=== PATIENT | male | born 1975 | race Caucasian/White ===

== ENCOUNTER 2016-09-02 11:43 | Emergency (ER) | payer BC ==
[2016-09-02 12:51] VITALS: BP 107/71
--- NOTE | 2016-09-02 13:50 | UC ---
Back Pain HPI - HPI Summary HPI Summary: Acute exacebration of Chronic back pain began 2 days ago after pushing a heavy box access the floor - History of Current Complaint Chief Complaint: UCBackPain Stated Complaint: LOW BACK PAIN Time Seen by Provider: 09/02/16 13:28 Hx Obtained From: Patient Onset/Duration: Sudden Onset, Lasting Days - 2, Still Present Timing: Constant Severity Initially: Moderate Severity Currently: Moderate Pain Intensity: 7 Pain Scale Used: 0-10 Numeric Back Pain: Is Discrete @ - lower right side Character: Aching, Spasmodic, Stiffness Aggravating: Movement Alleviating: Nothing Associated Signs And Symptoms: Positive: Negative - Allergies/Home Medications Allergies/Adverse Reactions: Allergies Allergy/AdvReac Type Severity Reaction Status Date / Time No Known Allergies Allergy Verified 09/02/16 12:47 PMH/Surg Hx/FS Hx/Imm Hx Previously Healthy: No Endocrine History Of: Denies: Diabetes Cardiovascular History Of: Denies: Hypertension, Pacemaker/ICD Respiratory History Of: Reports: Asthma GI/ History Of: Denies: Renal Disease Psychological History Of: Reports: Depression - Surgical History Surgical History: Yes Surgery Procedure, Year, and Place: Hiatal Herniorrhapy, 2009 - Family History Known Family History: Positive: Unknown - Social History Occupation: Employed Full-time - [employer] Lives: With Family Alcohol Use: Rare Substance Use Type: None Smoking Status (MU): Never Smoked Tobacco Type: Smokeless Tobacco Amount Used/How Often: 1 can per day Length of Time of Smoking/Using Tobacco: 22 Years Have You Smoked in the Last Year: Yes Cessation Counseling: Counseled 3+Min - 10 Min - Immunization History Most Recent Influenza Vaccination: Not the 2014/2015 Season Most Recent Tetanus Shot: 2013 Review of Systems Constitutional: Negative Skin: Negative Eyes: Negative ENT: Negative Respiratory: Negative Cardiovascular: Negative Gastrointestinal: Negative Genitourinary: Negative Motor: Negative Neurovascular: Negative Musculoskeletal: Myalgia - right lower back Neurological: Negative Psychological: Negative All Other Systems Reviewed And Are Negative: Yes Physical Exam Triage Information Reviewed: Yes Appearance: Well-Appearing, No Pain Distress, Well-Nourished Vital Signs: Initial Vital Signs Temp 98.3 F 09/02/16 12:40 Pulse 54 09/02/16 12:40 Resp 12 09/02/16 12:40 BP 107/71 09/02/16 12:40 Pulse Ox 100 05/22/17 12:40 Vital Signs Reviewed: Yes Eye Exam: Normal Eyes: Positive: Conjunctiva Clear ENT Exam: Normal ENT: Positive: Normal ENT inspection, Hearing grossly normal. Negative: Nasal congestion, Nasal drainage, Tonsillar swelling, Tonsillar exudate, Trismus, Muffled/hoarse voice Dental Exam: Normal Neck exam: Normal Neck: Positive: Supple, Nontender Respiratory Exam: Normal Respiratory: Positive: Chest non-tender, Lungs clear, Normal breath sounds, No respiratory distress, No accessory muscle use Cardiovascular Exam: Normal Cardiovascular: Positive: RRR, No Murmur, Pulses Normal, Brisk Capillary Refill Abdominal Exam: Normal Abdomen Description: Negative: CVA Tenderness (R), CVA Tenderness (L) Musculoskeletal Exam: Normal Musculoskeletal: Positive: Strength Intact, No Edema, ROM Limited @ - low back Neurological Exam: Normal Neurological: Positive: Alert, Muscle Tone Normal Psychological Exam: Normal Skin Exam: Normal Back Pain Course/Dx - Course Course Of Treatment: continue current treatment rx add flexeril core strengthing and low back exercise follow with PCP September 13 as planned - Differential Dx/Diagnosis Differential Diagnosis/HQI/PQRI: Arthritis, Septic Arthritis, Strain, Sprain Provider Diagnoses: Acute on Chonic low back pain Discharge - Discharge Plan Condition: Stable Disposition: HOME Prescriptions: Cyclobenzaprine TAB* [Flexeril 10 MG TAB*] 10 mg PO TID PRN #15 tab PRN Reason: miscle spasm Patient Education Materials: Muscle Spasm (ED), Low Back Strain (ED), Chronic Back Pain (ED), Core Strengthening Exercises (GEN), Acute Low Back Pain (ED), How to Quit Using Smokeless Tobacco (ED) Referrals: Deon Pimentel MD [Primary Care Provider] - 09/13/16
== END 2016-09-02 13:50 | disposition home or self-care (01) ==
LOC: UCCORT 11:43
DX: M54.5 Low back pain (principal); G89.29 Other chronic pain
CPT/HCPCS: 99212; G0463

== ENCOUNTER 2016-11-15 15:49 | Emergency (ER) | payer BC ==
[2016-11-15 16:10] VITALS: BP 114/85
--- NOTE | 2016-11-15 16:28 | UC ---
Back Pain HPI - HPI Summary HPI Summary: Pt presents through amb triage. Pt states has h/o back injury. Pt was on disability x 10 weeks. Pt states this week was first week back to work, [employer]. Pt states he is scheduled for surgery in [place] in March. Pt states occasionall has right sided sciatica, no leg weakness. Today he missed a step, landed hard on right leg and exacerbated his chronic pain. no fall. no new paresthesia. no ext weakness. no change in bowel/bladder. Pt states occurred at 1430. Pt here because needs a note that was unable to complete work day today - pt scheduled until 1630. Pt has not taken any medications. Pt has not applied heat or ice. Pt states he is going home to take meds which include ibuprofen / PErcoet/ flexeril. Pt followed by family medicine in [place] Pt not scheduled to work Sat or Sun. States he thinks he will be "fine" by Friday - History of Current Complaint Chief Complaint: UCBackPain Stated Complaint: BACK PAIN Time Seen by Provider: 11/15/16 16:22 Hx Obtained From: Patient, Medical Records - istop consulted Timing: Constant Severity Initially: Mild Severity Currently: Mild Pain Intensity: 4 Pain Scale Used: 0-10 Numeric Back Pain: Is Discrete @ - right mid/low back Aggravating: Movement Alleviating: Rest, Position Associated Signs And Symptoms: Positive: Negative. Negative: Swelling, Redness , Bruising - Allergies/Home Medications Allergies/Adverse Reactions: Allergies Allergy/AdvReac Type Severity Reaction Status Date / Time No Known Allergies Allergy Verified 11/15/16 15:58 PMH/Surg Hx/FS Hx/Imm Hx Previously Healthy: Yes - Surgical History Surgical History: Yes Surgery Procedure, Year, and Place: HIATAL HERNIA REPAIR, 2009 - Family History Known Family History: Positive: Unknown - Social History Occupation: Employed Full-time Alcohol Use: None Substance Use Type: None Smoking Status (MU): Never Smoked Tobacco Type: Smokeless Tobacco Amount Used/How Often: 1 can per day Length of Time of Smoking/Using Tobacco: 22 Years Have You Smoked in the Last Year: Yes - Immunization History Most Recent Influenza Vaccination: Not the 2015/2015 Season Most Recent Tetanus Shot: 2013 Review of Systems Constitutional: Negative Skin: Negative Eyes: Negative ENT: Negative Respiratory: Negative Cardiovascular: Negative Gastrointestinal: Negative Genitourinary: Negative Motor: Other - mid/low back pain Neurovascular: Negative Musculoskeletal: Negative, Other: - mid/low back pain Neurological: Negative Psychological: Negative All Other Systems Reviewed And Are Negative: Yes Physical Exam Triage Information Reviewed: Yes Appearance: Well-Appearing, No Pain Distress - no discomfort. Pt easily changes position - walking, sitting to standing, climbing onto exam table, Well- Nourished Vital Signs: Initial Vital Signs Temp 98.0 F 11/15/16 15:54 Pulse 84 11/15/16 15:54 Resp 16 11/15/16 15:54 BP 114/85 11/15/16 15:54 Pulse Ox 98 11/15/16 15:54 Eye Exam: Normal Eyes: Positive: Conjunctiva Clear ENT Exam: Normal Dental Exam: Normal Neck exam: Normal Neck: Positive: Supple, Nontender, No Lymphadenopathy Respiratory Exam: Normal Respiratory: Positive: Chest non-tender, Lungs clear, Normal breath sounds, No respiratory distress, No accessory muscle use Cardiovascular Exam: Normal Cardiovascular: Positive: RRR, No Murmur Abdominal Exam: Normal Abdomen Description: Positive: Nontender, No Organomegaly, Soft Bowel Sounds: Positive: Present Musculoskeletal: Positive: Other: - no spinous process pain c/t/l/s mild paraspinal distal thoracic, lumbar Full AROM upper ext + SLE b/l lower with increased back pain + flex/ext knee, ankle without difficulty Neurological Exam: Normal Neurological: Positive: Alert, Other: - b/l equal sensation throughotu 2+ patellar, achilles - no clonus Psychological Exam: Normal Skin Exam: Normal Back Pain Course/Dx - Course Course Of Treatment: Pt with chronic back pain and exacerbated with misstep at work today. Pt requesting a note for remainder of work today. Pt has medications at home. Pt declined Motrin in urgent care. recommend PCP f/u - Differential Dx/Diagnosis Provider Diagnoses: acute exacerbation of chronic back pain. work note Discharge - Discharge Plan Condition: Stable Disposition: HOME Patient Education Materials: Back Pain (ED) Forms: *Work Release Referrals: Deon Pimentel MD [Primary Care Provider] - Additional Instructions: - Okay to alternate ibuprofen (Advil, Motrin) 600mg and Tylenol product ( Tylenol or Oxycodone) every 3hours as needed for pain. Take with food. Do NOT take for more than 4-[address], operate machinery or drink alcohol while taking [place]. This medication may cause constipation - use a stool softner as needed -Take flexeril - muscle relaxer as prescribed -Apply moist heat to your back for 20 minutes at a time, 4-5 times a day. Once your muscles are warm, slow gentle stretching exercises are important -Contact your doctor today to arrange a follow-up with questions or concerns
== END 2016-11-15 16:41 | disposition home or self-care (01) ==
LOC: UCCORT 15:49
DX: G89.21 Chronic pain due to trauma (principal); M54.9 Dorsalgia, unspecified; F17.220 Nicotine dependence, chewing tobacco, uncomplicated
CPT/HCPCS: 99211; G0463

== ENCOUNTER 2017-01-02 07:28 | Emergency (ER) | payer BC ==
[2017-01-02 07:42] VITALS: BP 100/64
--- NOTE | 2017-01-02 08:10 | UC ---
Skin Complaint HPI - HPI Summary HPI Summary: "I broke my toe last July, my RIGHT big toe." Pt states he stubbed his toe into metal plate going up stairs couple months ago, toenail "split" then but had no other problems. Pt states this past week he's noticed redness, pus-like drainage and pain in RIGHT big toe. Tried soaking foot in Epsom soaks w/ some relief. States part of split nail came off RIGHT big toe. Took 800mg ibuprofen this morning 0630 w/ no pain relief. [ End ] - History of Current Complaint Chief Complaint: UCLowerExtremity Time Seen by Provider: 01/02/17 07:43 Stated Complaint: RIGHT BIG TOE COMPLAINT Hx Obtained From: Patient Onset/Duration: Gradual Onset Skin Exposure Onset/Duration: Days Ago Timing: Constant Onset Severity: Mild Current Severity: Moderate Pain Intensity: 2 Pain Scale Used: 0-10 Numeric Location: Diffuse Aggravating: Touch Associated Signs & Symptoms: Positive: Negative, Joint Swelling Related History: Trauma - Allergy/Home Medications Allergies/Adverse Reactions: Allergies Allergy/AdvReac Type Severity Reaction Status Date / Time No Known Allergies Allergy Verified 01/02/17 07:34 Review of Systems Musculoskeletal: Other: - large toe pain with redness and discharge All Other Systems Reviewed And Are Negative: Yes PMH/Surg Hx/FS Hx/Imm Hx Previously Healthy: Yes - Surgical History Surgical History: Yes Surgery Procedure, Year, and Place: HIATAL HERNIA REPAIR, 2009 - Family History Known Family History: Positive: Unknown - Social History Occupation: Employed Full-time Lives: With Family Alcohol Use: None Substance Use Type: None Smoking Status (MU): Former Smoker Type: Smokeless Tobacco Amount Used/How Often: 1 can per day Length of Time of Smoking/Using Tobacco: 22 Years Have You Smoked in the Last Year: Yes - Immunization History Most Recent Influenza Vaccination: NONE 2017 Most Recent Tetanus Shot: 2013 Physical Exam Triage Information Reviewed: Yes Appearance: Well-Appearing, No Pain Distress Vital Signs: Initial Vital Signs Temp 97.8 F 01/02/17 07:35 Pulse 50 01/02/17 07:35 Resp 16 01/02/17 07:35 BP 100/64 01/02/17 07:35 Pulse Ox 100 01/02/17 07:35 Vital Signs Reviewed: Yes Eye Exam: Normal ENT Exam: Normal Respiratory Exam: Normal Cardiovascular Exam: Normal Musculoskeletal Exam: Normal Musculoskeletal: Positive: ROM Limited @ - large toe with limited ROM due to swelling at distal MTP Neurological Exam: Normal Psychological Exam: Normal Skin: Positive: Other - right large toe with medial aspect inflamed with blood crusted over it . erythema of the distal toe at the nail medial > lateral. no pulp tenderness. cap refill < 3 sec but difficult to assess due to tenderness of the toe. peripheral pulses intact and brisk. no active discarge. no streaking. no concerns at the base of the large right toe or elsewhere Course/Dx - Course Course Of Treatment: RICE, soak the foot and f/u podiatry for potential removal of the toe completyely or partially. start keflex to ensure no cellulitis spreads beyond its current spot and if it does then go to ED. he is agreeable and will call podiatry today - Diagnoses Provider Diagnoses: paronychia / ingrown toe nail with infection large right toe Discharge - Discharge Plan Condition: Good Disposition: HOME Prescriptions: Cephalexin CAP* [Keflex 500 CAP*] 500 mg PO BID #20 cap Patient Education Materials: Paronychia (ED) Referrals: Deon Pimentel MD [Primary Care Provider] - 4 Days (Also follow up with podiatry please )
== END 2017-01-02 08:00 | disposition home or self-care (01) ==
LOC: UCCORT 07:28
DX: L60.0 Ingrowing nail (principal); L03.031 Cellulitis of right toe; Z87.891 Personal history of nicotine dependence
CPT/HCPCS: 99212; G0463